=== PATIENT | male | born 1930 | race Hispanic/Latino ===

== ENCOUNTER 2018-03-09 14:41 | Observation (INO) | payer MEDICARE ==
--- NOTE | 2018-03-09 15:13 | ED PDOC ---
Arrival/HPI - General Chief Complaint: Chest Pain Time Seen by Provider: 03/09/18 14:47 Historian: Patient - History of Present Illness Narrative History of Present Illness (Text): 03/09/18 15:05 pt p/w + 2 weeks onset of epigastric/substernal chest pressure/pain; pt states + exertional sob, + worsening pain with exertion; pt states no fever/chills/ sweats, no palpitations, no abd pain, no n/v, no numbness/tingling, no urinary/ bowel changes, no fall/trauma/sick contact, no travel; pt denied gross bleeding. pt [place] walks around the local park daily but over the last 1-2 weeks, has not been able to complete one pass of the park without having worsening epigastric pain with increasing sob pt is here for further eval pt's without other complaints. pt was evaluated at [facility] satellite facility today, prior to ED arrival, and was dx with CHEST PAIN R/O ACS with ? left lung infiltrate, pt was transferred to [place] ED for further eval/mgt/admission (to Dr Robertson) PCP: Dr Robertson pt lives alone Time/Duration: > week (2 weeks) Symptom Onset: Gradual Symptom Course: Other (waxing and waning) Quality: Pressure, Tightness Severity Level: Severe Activities at Onset: Other (worse with exertion) Context: Home Past Medical History - Provider Review Nursing Documentation Reviewed: Yes - Travel History Have you recently traveled outside [place] w/in the past 3 mons?: No - Past History Past History: No Previous - Infectious Disease Hx of Infectious Diseases: None - Tetanus Immunization Tetanus Immunization: Unknown - Cardiac Hx Pacemaker: Yes (DUAL CHAMBERED) - Pulmonary Hx Respiratory Disorders: No - Neurological Hx Paralysis: No - HEENT Hx HEENT Disorder: Yes (eyeglasses) - Renal Hx Renal Disorder: No - Endocrine/Metabolic Hx Endocrine Disorders: No Hx Hypothyroidism: Yes - Hematological/Oncological Hx Blood Transfusions: Yes Hx Blood Transfusion Reaction: No - Integumentary Hx Dermatological Disorder: Yes 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) - Musculoskeletal/Rheumatological Hx Musculoskeletal Disorders: No - Gastrointestinal Hx Gastrointestinal Disorders: Yes (COLITIS 09-28-14) Hx Gastroesophageal Reflux: Yes Other/Comment: colon ca with surgery - Genitourinary/Gynecological Hx Genitourinary Disorders: No Hx Prostate Problems: No (pt/family deny) - Psychiatric Hx Emotional Abuse: No Hx Physical Abuse: No Hx Substance Use: No - Surgical History Hx Cardiac Catheterization: Yes Hx Coronary Stent: Yes (X2) Other/Comment: PARTIAL AMPUTATION OF LEFT RING FINGER 1972, r hemecolectomy tumor removed 10/2014 no chemo, colon polyps - Anesthesia Hx Anesthesia Reactions: Yes Hx Malignant Hyperthermia: No - Suicidal Assessment Feels Threatened In Home Enviroment: No Family/Social History - Physician Review Nursing Documentation Reviewed: Yes Family/Social History: No Known Family HX Smoking Status: Former Smoker Hx Alcohol Use: No Hx Substance Use: No Hx Substance Use Treatment: No Allergies/Home Meds Allergies/Adverse Reactions: Allergies No Known Allergies Allergy (Verified 04/11/15 14:12) Home Medications: Home Meds Medication Instructions Recorded Confirmed Furosemide [Lasix] 20 mg PO DAILY 04/11/15 05/11/15 Magnesium Oxide 250 mg PO DAILY 04/11/15 05/12/15 Memantine HCl [Namenda] 5 mg PO AMHS 04/11/15 05/12/15 Polyethylene Glycol 3350 [Miralax] 17 gm PO DAILY 04/11/15 05/12/15 Vitamin B Complex [Super B100] 1 cap PO DAILY 04/11/15 05/12/15 Dexlansoprazole [Dexilant] 60 mg PO QAM 05/11/15 05/12/15 Levothyroxine Sodium [Unithroid] 0.1 mg PO QAM 05/11/15 05/12/15 Metoprolol Tartrate [Lopressor] 25 mg PO QPM 05/11/15 05/12/15 Review of Systems - Review of Systems Constitutional: Fatigue Eyes: Normal ENT: Normal Respiratory: SOB Cardiovascular: Chest Pain, BARRON. absent: Syncope Gastrointestinal: Normal. absent: Abdominal Pain, Nausea, Vomiting Genitourinary Male: Normal Musculoskeletal: Normal. absent: Arthralgias Skin: Normal Neurological: Dizziness. absent: Headache Endocrine: Normal Hemo/Lymphatic: Normal Psychiatric: Normal Physical Exam Vital Signs Reviewed: Yes Vital Signs Temp Pulse Resp BP Pulse Ox 03/09/18 19:28 59 L 98/56 L 03/09/18 17:17 97.9 F 68 18 95/58 L 03/09/18 14:52 97.9 F 68 18 95/58 L 96 Temperature: Afebrile Blood Pressure: Hypotensive Pulse: Regular Respiratory Rate: Normal Appearance: Positive for: Well-Appearing, Non-Toxic, Uncomfortable, Other (alert /awake, GCS = 15, oriented x 2 (not to date/time), resting in bed, NAD, mildly uncomfortable) Pain Distress: None Mental Status: Positive for: other (alert/awake, oriented x 2 (not to date/time) ) - Systems Exam Head: Present: Atraumatic, Normocephalic Pupils: Present: PERRL, Other (no nystagmus, no photophobia, sclera anicteric) Extroacular Muscles: Present: EOMI Conjunctiva: Present: Normal Ears: Present: Normal Mouth: Present: Other (fair dentitions, mild dry oral mucosa, no dysphonia, uvula/tongue are midline, no exudate/lesions) Pharnyx: Present: Normal Nose (External): Present: Atraumatic Nose (Internal): Present: Normal Inspection Neck: Present: Normal Range of Motion, Trachea Midline, Other (intact ROM, no midline tenderness, no nuchal rigidity, no step off). No: Meningeal Signs, MIDLINE TENDERNESS Respiratory/Chest: Present: Clear to Auscultation, Good Air Exchange, Other ( CTA b/l, no w/r/r, no accessory muscle use noted). No: Respiratory Distress, Accessory Muscle Use Cardiovascular: Present: Regular Rate and Rhythm, Normal S1, S2. No: Murmurs Abdomen: Present: Normal Bowel Sounds, Other (well nourished/obese male, no focal tenderness; no masses/rebound/guarding/rigidity, no burch's sign, no mcburney's point tenderness) Back: Present: Normal Inspection. No: CVA Tenderness, Midline Tenderness Upper Extremity: Present: Normal Inspection, Normal ROM, NORMAL PULSES, Capillary Refill < 2s Lower Extremity: Present: Normal Inspection, NORMAL PULSES, Normal ROM, Neurovascularly Intact Neurological: Present: GCS=15, CN II-XII Intact, Speech Normal Skin: Present: Warm, Normal Color, Other (cap refill < 1sec, no ulcerations, no petechiae) Psychiatric: Present: Alert, Normal Insight, Normal Concentration Medical Decision Making ED Course and Treatment: 03/09/18 15:25 Impression: epigastric pain/exertional sob i have consider all the differential diagnosis regarding pt's chief medical complaints/clinical findings, including but are not limited to: epigastric pain/ exertional sob A/P: epigastric pain/exertional sob; r/o acs, ? PNA - labs - iv - acs eval - xray - supportive care - observe/reevaluation 03/09/18 15:35 pt is currently chest pain free pt states epigastric/chest pain is gone pt is currently NOT sob pt/son are made aware of his medical results agrees with admission pt had been provided 1 dose of ABX and 1 dose ASA at [facility] [address] Robertson, made aware, agrees with admission, will continue to monitor patient; would like to consult Dr Colon (cards) Re-evaluation Time: 15:47 Reassessment Condition: Improved - Critical Care Critical Care Minutes: 30 minutes Critical Care Time: Excluding Proc Time Narrative Critical Care (Text): 03/09/18 15:47 critical care time: 30min, excluding procedure time, excluding time teaching residents/students/mid-level providers; including initial eval/diagnosis, diagnostic interpretation, re-eval, consultations, final disposition - Lab Interpretations I have reviewed the lab results: Yes Interpretation: Abnormal lab values (elevated BNP) - RAD Interpretation Narrative RAD Interpretations (Text): 03/09/18 17:16 Chest X-ray reviewed, shows: LUNGS: No active pulmonary disease. PLEURA: No significant pleural effusion identified. No pneumothorax apparent. CARDIOVASCULAR: Normal. OSSEOUS STRUCTURES: No significant abnormalities. VISUALIZED UPPER ABDOMEN: Normal. OTHER FINDINGS: Dual lead pacemaker IMPRESSION: No active disease 03/09/18 19:50 CT Chest reviewed, shows: Lungs: Notable mosaic attenuation of lung whittington bilaterally. The right lung base. Pleural space: No pneumothorax. No significant effusion. Heart: Streak artifact from dual-lead pacer. Significant coronary artery calcification. Mild cardiomegaly. No significant pericardial effusion. Bones/joints: Degenerative changes. Mildly heterogeneous appearance to vertebral bodies, may be related to osteoporosis. Soft tissues: No acute abnormality as visualized. Vasculature: Pulmonary arteries are prominent, question pulmonary hypertension. Atherosclerosis. No thoracic aortic aneurysm. Limited evaluation without contrast. Lymph nodes: Shotty nodes. Upper abdomen: Minimal hiatal hernia. Bilateral nonspecific perinephric stranding. IMPRESSION: Notable mosaic attenuation of lung whittington bilaterally. Pulmonary arteries are prominent, question pulmonary hypertension as a cause versus other vascular abnormality. Alternatively, may represent parenchymal disease. Correlate clinically to exclude infection. Cannot evaluate for pulmonary embolism without contrast. 03/09/18 20:21 Radiology Orders: 03/09/18 15:38 CHEST TWO VIEWS (PA/LAT) [RAD] Stat Signals Intelligence Superintendent: ED Physician, Radiologist - EKG Interpretation EKG Interpretation (Text): 03/09/18 15:50 Paced rhythm at 60 bpm, no ectopy; ABNL EKG; no gross changes compare with old ekg 04/2015 Interpreted by ED Physician: Yes Type: 12 lead EKG Comparison: Similar to previous EKG - Medication Orders Current Medication Orders: Albuterol/Ipratropium (Duoneb 3 Mg/0.5 Mg (3 Ml) Ud) 3 ml IH QID [facility] Stop: 03/10/18 10:01 Last Admin: 03/09/18 19:27 Dose: 3 ml Atorvastatin Calcium (Lipitor) 10 mg PO DAILY [facility] Ceftriaxone Sodium (Rocephin 1 Gram Ivpb) 1 gm in 100 mls @ 100 mls/hr IVPB DAILY [facility] PRN Reason: Protocol Isosorbide Mononitrate (Imdur Er) 30 mg PO DAILY [facility] Levothyroxine Sodium (Synthroid) 100 mcg PO ACB [facility] Magnesium Oxide (Mag-Ox) 400 mg PO DAILY [facility] Memantine (Namenda) 5 mg PO AMHS [facility] Metoprolol Tartrate (Lopressor) 25 mg PO QPM [facility] Last Admin: 03/09/18 19:28 Dose: Not Given Non-Admin Reason: BP Parameters Not Met MAR Pulse and Blood Pressure Document 03/09/18 19:28 EQ (Rec: 03/09/18 19:30 EQ [id number]) Pulse Pulse Rate (60-90) 59 Blood Pressure Blood Pressure (100/60-150/90) 98/56 Non-Formulary Medication (Vitamin B Complex [Super B100]) 1 cap PO DAILY [facility] Pantoprazole Sodium (Protonix Ec Tab) 40 mg PO ACB [facility] Discontinued Medications Sodium Chloride (Sodium Chloride 0.9%) 500 mls @ 999 mls/hr IV .Q31M [facility] Stop: 03/09/18 16:14 Last Admin: 03/09/18 17:14 Dose: 999 mls/hr eMAR Start Stop Document 03/09/18 17:14 EQ (Rec: 03/09/18 17:14 EQ [id number]) Intravenous Solution Start Date 03/09/18 Start Time 17:14 Nitroglycerin (Nitro-Bid 2% Oint) 1 ea TOP STAT [facility] Stop: 03/09/18 15:39 Last Admin: 03/09/18 17:14 Dose: Not Given Non-Admin Reason: BP Parameters Not Met - Scribe Statement The provider has reviewed the documentation as recorded by the Scribveronica Rizo All medical record entries made by the Scribe were at my direction and personally dictated by me. I have reviewed the chart and agree that the record accurately reflects my personal performance of the history, physical exam, medical decision making, and the department course for this patient. I have also personally directed, reviewed, and agree with the discharge instructions and disposition. Disposition/Present on Arrival - Present on Arrival Any Indicators Present on Arrival: No History of DVT/PE: No History of Uncontrolled Diabetes: No Urinary Catheter: No History of Decub. Ulcer: No History Surgical Site Infection Following: None - Disposition Have Diagnosis and Disposition been Completed?: Yes Diagnosis: Chest pain with moderate risk for cardiac etiology, Weakness, BARRON (dyspnea on exertion) Disposition: HOSPITALIZED Disposition Time: 15:51 Patient Plan: Admission, Telemetry Patient Problems: Current Active Problems Problem Status Onset Pneumonia Acute Chest pain with moderate risk for cardiac etiology Acute Weakness Acute BARRON (dyspnea on exertion) Acute Condition: FAIR
[2018-03-09] MEDS ORDERED: Nitroglycerin 2% Ointment Foilpak UD TOP STA (15:38)
[2018-03-09] MEDS ORDERED: Sodium Chloride 0.9% 500 ML IV STA (15:44)
[2018-03-09 16:52] LABS: ALB/GLOB RATIO 1.2 (1.1-1.8); ALBUMIN 3.5 g/dL (3.0-4.8); ALT/SGPT 31 U/L (7-56); AST/SGOT 29 U/L (17-59); BLOOD UREA NITROGEN 20 mg/dL (7-21); CALCIUM 8.5 mg/dL (8.4-10.5); GFR AFRICAN-AMERICAN > 60; GFR NON-AFRICAN AMERICAN 52
[2018-03-09 17:03] LABS: VENOUS BLOOD GAS BASE EXCESS 1.9 mmol/L (0.0-2.0); VENOUS BLOOD GAS PO2 43 mm/Hg (30-55); VENOUS BLOOD PH 7.36 (7.32-7.43)
[2018-03-09 17:04] LABS: B-TYPE NATRIURETIC PEPTIDE 2170 pg/mL (0-450); TROPONIN I < 0.01 ng/mL
--- NOTE | 2018-03-09 17:14 | RAD ---
HISTORY: chest pain; sob COMPARISON: 04/11/2015 TECHNIQUE: Chest PA and lateral FINDINGS: LUNGS: No active pulmonary disease. PLEURA: No significant pleural effusion identified. No pneumothorax apparent. CARDIOVASCULAR: Normal. OSSEOUS STRUCTURES: No significant abnormalities. VISUALIZED UPPER ABDOMEN: Normal. OTHER FINDINGS: Dual lead pacemaker IMPRESSION: No active disease.
[2018-03-09 17:15] LABS: BASO # 0.02 K/mm3 (0.0-2.0); BASO % 0.4 % (0.0-3.0); EOS # 0.1 (0.0-0.7); EOS % 1.8 % (1.5-5.0); GRAN # 2.9 (1.4-6.5); GRAN % 53.6 % (50.0-68.0); HEMOGLOBIN 11.3 g/dL (14.0-18.0); LYMPH % 36.5 % (22.0-35.0); MEAN CELL VOLUME 103.4 fl (80.0-105.0); MEAN CORPUSCULAR HEMOGLOBIN 34.8 pg (25.0-35.0); MEAN CORPUSCULAR HGB CONC 33.6 g/dl (31.0-37.0); MEAN PLATELET VOLUME 10.3 fl (7.0-11.0); MONO # 0.4 (0.1-0.6); MONO % 7.7 % (1.0-6.0); RBC 3.25 10^6/uL (3.5-6.1); RED CELL DISTRIBUTION WIDTH 13.9 % (11.5-14.5); WHITE BLOOD COUNT 5.4 10^3/ul (4.5-11.0)
[2018-03-09 17:17] LABS: INR 1.09 (0.93-1.08); PARTIAL THROMBOPLASTIN TIME 27.8 Seconds (25.1-36.5); PROTHROMBIN TIME 12.5 SECONDS (9.4-12.5)
[2018-03-09 17:21] VITALS: BMI 30.1
[2018-03-09] MEDS: Albuterol-Ipratrop 3 mg / 0.5 (3 ml) UD IH SCH ×2 (19:27→21:55)
--- NOTE | 2018-03-09 19:47 | CT ---
EXAM: CT Chest Without Intravenous Contrast CLINICAL HISTORY: 87 years old, male; Signs and symptoms; Shortness of breath; Additional info: SOB TECHNIQUE: Axial computed tomography images of the chest without intravenous contrast. All CT scans at this facility use one or more dose reduction techniques, viz.: automated exposure control; ma/kV adjustment per patient size (including targeted exams where dose is matched to indication; i.e. head); or iterative reconstruction technique. Coronal and sagittal reformatted images were created and reviewed. COMPARISON: DX - CHEST TWO VIEWS (PA/LAT) 2018-03-09 17:05 FINDINGS: Lungs: Notable mosaic attenuation of lung whittington bilaterally. The right lung base. Pleural space: No pneumothorax. No significant effusion. Heart: Streak artifact from dual-lead pacer. Significant coronary artery calcification. Mild cardiomegaly. No significant pericardial effusion. Bones/joints: Degenerative changes. Mildly heterogeneous appearance to vertebral bodies, may be related to osteoporosis. Soft tissues: No acute abnormality as visualized. Vasculature: Pulmonary arteries are prominent, question pulmonary hypertension. Atherosclerosis. No thoracic aortic aneurysm. Limited evaluation without contrast. Lymph nodes: Shotty nodes. Upper abdomen: Minimal hiatal hernia. Bilateral nonspecific perinephric stranding. IMPRESSION: Notable mosaic attenuation of lung whittington bilaterally. Pulmonary arteries are prominent, question pulmonary hypertension as a cause versus other vascular abnormality. Alternatively, may represent parenchymal disease. Correlate clinically to exclude infection. Cannot evaluate for pulmonary embolism without contrast. Please see additional details/findings as above. Similarly above findings may warrant followup evaluation.
[2018-03-10] MEDS: Pantoprazole 40 mg EC Tab PO SCH (06:39)
[2018-03-10] MEDS: Levothyroxine 100 MCG TAB PO SCH (06:39)
[2018-03-10] MEDS ORDERED: LEVOTHYROXINE SODIUM PO SCH (10:00)
[2018-03-10] MEDS: Magnesium Oxide 400 mg Tab UD PO SCH (10:58)
[2018-03-10] MEDS: cefTRIAXone 1 gm 1 GM/100 ML BAG IVPB SCH (10:59)
[2018-03-10] MEDS: Multivitamin Therapeutic Tab PO SCH (10:59)
[2018-03-10] MEDS: Albuterol-Ipratrop 3 mg / 0.5 (3 ml) UD IH SCH (11:31)
--- NOTE | 2018-03-10 14:09 | CARD ---
APPROVED REPORT EKG Measurement Heart [id number] <Conclusion> Poor data quality, interpretation may be adversely affected Electronic ventricular pacemaker
--- NOTE | 2018-03-10 17:47 | HP ---
HISTORY OF PRESENT ILLNESS: An 87-year-old white male with history of CAD, history of pacemaker insertion, history of stent with Dr. Colon in the past. The patient also has history of colon cancer, remote, status post resection without recurrence, history of hiatal hernia, approximately 2-week history of increased progressive shortness of breath, dyspnea on exertion and "indigestion" relieved by belching. The [facility] [place], transferred to [facility] for admission. The patient was found to have elevated BNP of 2000. EKG showed no changes. He has pacemaker rhythm. PHYSICAL EXAMINATION VITAL SIGNS: Stable. Temperature is 98.5, blood pressure 130/73. GENERAL: The patient was a well-developed, well-nourished white male, in no apparent distress. HEENT: Essentially normal. HEART: Regular sinus rhythm. No murmurs. CHEST: Clear to auscultation and percussion. ABDOMEN: Benign. There is no tenderness. Bowel sounds are normoactive. There is no splenomegaly. EXTREMITIES: No cyanosis, clubbing or edema. There were some bibasilar changes on CT. CAT scan done showed mosaic pattern of both lung bases without definite infiltrate. Troponins initially were negative. Laboratory data were unremarkable. PLAN: Consult with Dr. Colon treatment of heart failure, possible GI evaluation and after his clearance is possible, to possible acute coronary artery disease. Clear and treat with PPIs. Continue his cardiac medications and cardiac evaluation and possible GI evaluation once he is cleared from Cardiology. Giuseppe Robertson MD cc: MD Angie (Delete if not dictated.)
--- NOTE | 2018-03-10 20:27 | CON ---
DATE: 03/10/2018 INDICATIONS: Chest pain. HISTORY OF PRESENT ILLNESS: This is an 87-year-old man known to our practice with mid epigastric chest discomfort and dyspnea on exertion, this has been present for several days. He has noticed diminished ability to walk because of dyspnea. He was initially seen in the [facility] ER. There was a question of a left lung infiltrate. He was admitted by our emergency room yesterday. Today, he is resting comfortably in bed. He does not have chest pain or shortness of breath. There was no orthopnea, PND or syncope. There was no palpitations, edema or claudication. There was no fever, chills, cough, sputum production, or hemoptysis. There was no nausea, vomiting, diarrhea, constipation, or melena. PAST MEDICAL HISTORY: Notable for coronary artery disease with myocardial infarction, coronary intervention. He has known [id number] LV dysfunction based on an echocardiogram in 2014, which showed segmental wall motion abnormality as well as moderate aortic stenosis, mild mitral regurgitation and mild tricuspid regurgitation. There is a history of hypertension, a permeant pacemaker, colon carcinoma, skin cancer, TURP. There is no history of congestive heart failure, stroke, TIA, diabetes or gout. MEDICATIONS: At the time of admission included Dexilant, Imdur, Lasix, Lipitor, Lopressor, magnesium, MiraLax, Namenda, vitamins, Synthroid. ALLERGIES: THERE WERE NO KNOWN MEDICATION ALLERGIES REPORTED. PHYSICAL EXAMINATION: GENERAL: He is an elderly male, lying in bed on telemetry, in no acute distress. VITAL SIGNS: Telemetry revels ventricular pacing at 60 beats per minute. He is afebrile. Blood pressure 130/73, respirations 18 to 20, O2 sat 96% to 98% on nasal cannula. HEENT: Reveals no neck vein distention, thyromegaly, or carotid bruits. Mucous membranes are moist. Conjunctivae are pink. NECK: Supple. LUNGS: Lung whittington are clear. HEART: Reveals normal first and second heart sounds. There is a systolic ejection murmur in the aortic space and along the left sternal border. ABDOMEN: Soft, bowel sounds present. No mass, organomegaly, tenderness, rebound, or guarding. No CVA tenderness. No palpable abdominal aortic aneurysm. EXTREMITIES: Reveal no cyanosis, clubbing, or edema. NEUROLOGIC: He is awake, alert, and oriented. SKIN: Warm and dry. No rash or cellulitis. PSYCHIATRIC: Normal as to mood and affect. LABORATORY AND IMAGING: The chest x-ray here revealed no active disease. CT scan of the chest is noted, see full report for details. Prominent pulmonary arteries and mosaic attenuation of lung whittington bilaterally are noted. White count normal, platelet count normal, hemoglobin 11.3, hematocrit 33.6. PT 12.5, INR 1.09, PTT normal. Blood gases noted. Electrolytes, BUN, creatinine, blood sugar, all unremarkable. Magnesium 2.2. LFTs are unremarkable. CK 127. Two troponins are negative. BNP 2170. TSH 2.37. IMPRESSION: Wilfrid Bingham is an 87-year-old man admitted with exertional chest pain and dyspnea with known coronary artery disease; remote myocardial infarction; aortic stenosis, which is at least moderate on a prior echocardiogram. 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 I have ordered an echocardiogram to reassess his aortic valve. It is possible that aortic stenosis has progressed to a severe state or that his underlying coronary artery disease has worsened. In the mean time, he is getting isosorbide, Lipitor, metoprolol, magnesium, Namenda, Protonix, and Synthroid. He can be out of bed to chair. I will follow along with you. I will make additional recommendations based on his clinical course. Angelito Mckenna MD MTDD
[2018-03-11 01:14] VITALS: O2SAT 97
[2018-03-11 06:49] VITALS: BP 146/86; PULSE 66; RESP 20; TEMP 98.5
--- NOTE | 2018-03-11 08:11 | CP.PCM.PN ---
Subjective - Date & Time of Evaluation Date of Evaluation: 03/11/18 Time of Evaluation: 07:00 - Subjective Subjective: Stable on 2R. No CP or SOB reported. V/S noted. V. Paced. PE: Lungs: clear Cor.: S1S2, REYNALDO Abd.: soft Ext.: no edema Neuro.: alert BC X2 NG at 24 hrs. Objective - Vital Signs/Intake and Output Vital Signs (last 24 hours): Temp Pulse Resp BP Pulse Ox 98.5 F 66 20 146/86 97 03/11/18 06:00 03/11/18 06:00 03/11/18 06:00 03/11/18 06:00 03/11/18 06:00 Intake and Output: 03/11/18 03/11/18 06:59 18:59 Intake Total 600 Output Total 2 Balance 598 - Medications Medications: Current Medications Atorvastatin Calcium (Lipitor) 10 mg PO DAILY [facility] Last Admin: 03/10/18 10:58 Dose: 10 mg Ceftriaxone Sodium (Rocephin 1 Gram Ivpb) 1 gm in 100 mls @ 100 mls/hr IVPB DAILY [facility] PRN Reason: Protocol Last Admin: 03/10/18 10:59 Dose: 100 mls/hr Isosorbide Mononitrate (Imdur Er) 30 mg PO DAILY [facility] Last Admin: 03/10/18 10:58 Dose: 30 mg Levothyroxine Sodium (Synthroid) 100 mcg PO ACB [facility] Last Admin: 03/10/18 06:39 Dose: 100 mcg Magnesium Oxide (Mag-Ox) 400 mg PO DAILY [facility] Last Admin: 03/10/18 10:58 Dose: 400 mg Memantine (Namenda) 5 mg PO AMHS [facility] Last Admin: 03/10/18 21:35 Dose: 5 mg Metoprolol Tartrate (Lopressor) 25 mg PO QPM [facility] Last Admin: 03/10/18 18:08 Dose: 25 mg Multivitamins (Thera Tab) 1 tab PO DAILY [facility] Last Admin: 03/10/18 10:59 Dose: 1 tab Pantoprazole Sodium (Protonix Ec Tab) 40 mg PO ACB [facility] Last Admin: 03/10/18 06:39 Dose: 40 mg - Labs Labs: 03/09/18 16:30 03/09/18 16:30 PT 12.5 SECONDS (9.4-12.5) 03/09/18 16:30 INR 1.09 (0.93-1.08) H 03/09/18 16:30 APTT 27.8 Seconds (25.1-36.5) 03/09/18 16:30 Assessment and Plan - Assessment and Plan (Free Text) Assessment: CP/SOB Valvular Heat Disease with mod/sev , Mild MR and TR on prior echo CAD/CA/PCI/mod. to severe LVD on prior echo PPM HBP Colon cancer s/p resection HH Skin cancer TURP Plan: Check echo results OOB as brielle. Will follow.
[2018-03-11] MEDS: Multivitamin Therapeutic Tab PO SCH (09:23)
[2018-03-11] MEDS: Magnesium Oxide 400 mg Tab UD PO SCH (09:23)
[2018-03-11] MEDS: Levothyroxine 100 MCG TAB PO SCH (09:23)
[2018-03-11] MEDS: cefTRIAXone 1 gm 1 GM/100 ML BAG IVPB SCH (09:24)
[2018-03-11] MEDS: Pantoprazole 40 mg EC Tab PO SCH (09:24)
--- NOTE | 2018-03-11 09:40 | PN ---
DATE: 03/11/2018 SUBJECTIVE: An 87-year-old white male, history of CAD, valvular heart disease. The patient was admitted with nonspecific chest pain, upper abdominal pain. The patient was seen in consultation with Dr. Mckenna. He is having an echo done today. His troponins are negative. Most likely, we will discharge him home in improved condition. Do an outpatient stress test if possible and also will be treated for gastritis. The patient's laboratory data was unremarkable. The patient has remote history of CA of the bowel. CA is normal. The patient will be discharged home in improved condition and follow as an outpatient. Giuseppe Robertson MD
--- NOTE | 2018-03-12 07:48 | CARD ---
APPROVED REPORT EXAM: Two-dimensional and M-mode echocardiogram with Doppler and color Doppler. 2D DIMENSIONS Left Atrium (2D)3.9 (1.6-4.0cm)IVSd1.2 (0.7-1.1cm) LVDd4.6 (3.9-5.9cm)LVOT Diameter2.0 (1.8-2.4cm) PWd1.1 (0.7-1.1cm)LVDs4.1 (2.5-4.0cm) FS (%) 9.4 %LVEF (%)20.9 (>50%) M-Mode DIMENSIONS Aortic Root2.90 (2.2-3.7cm)Aortic Cusp Exc.0.60 (1.5-2.0cm) Aortic Valve AoV Peak Uhiniuiw224.0cm/sAoV VTI56.1cmAO Peak GR.27mmHg LVOT Peak Lvbleyvt52.6cm/sLVOT VTI18.40cmAO Mean GR.14mmHg GAYLE (VMAX)0.95lx4RKI (VTI)1.03cm2 Mitral Valve E/A ratio0.0 TDI E/Lateral E'0.0E/Medial E'0.0 Tricuspid Valve TR Peak Ntpugddw000cn/sRAP [id number] Peak Gr.22mmHg [id number] LEFT VENTRICLE The left ventricle is normal size. There is mild concentric left ventricular hypertrophy. The systolic function is moderately impaired. There is akinesis in the apical inferior wall. RIGHT VENTRICLE The right ventricle is normal size. The right ventricular systolic function is normal. ATRIA The left atrium is mildly dilated. The right atrium is mildly dilated. The interatrial septum is intact with no evidence for an atrial septal defect. AORTIC VALVE The aortic valve is moderately to severely calcified. There is trace aortic regurgitation. There is moderate valvular aortic stenosis. MITRAL VALVE The mitral valve is mildly thickened. Mitral regurgitation is mild. TRICUSPID VALVE The tricuspid valve is normal in structure. There is mild tricuspid regurgitation. PULMONIC VALVE The pulmonary valve is normal in structure. GREAT VESSELS The aortic root is normal in size. The IVC is normal in size and collapses >50% with inspiration. PERICARDIAL EFFUSION There is no pleural effusion. There is no pericardial effusion. <Conclusion> Dilated LA. Normal LV size. Mild concentric LVH. Moderately reduced LV systolic function with inferoseptal and apical akinesis. Mild MR. Moderate . Midl TR.
[2018-03-12] MEDS ORDERED: Cefpodoxime (Vantin) 200 mg Tab PO SCH (10:00)
== END 2018-03-11 11:32 | disposition home or self-care (01) ==
LOC: ED 14:41 → ERH 15:44 → INTOOBSV 15:44 → ERH 18:46 → 2RSO 20:30
PROVIDERS: ADMIT Internal Medicine; ATTEND Internal Medicine
DX: I25.10 Atherosclerotic heart disease of native coronary artery without angina pectoris (principal); Z85.828 Personal history of other malignant neoplasm of skin; E03.9 Hypothyroidism, unspecified; I08.3 Combined rheumatic disorders of mitral, aortic and tricuspid valves; I10 Essential (primary) hypertension; I25.2 Old myocardial infarction; K21.9 Gastro-esophageal reflux disease without esophagitis; K29.70 Gastritis, unspecified, without bleeding; Z85.038 Personal history of other malignant neoplasm of large intestine; Z95.0 Presence of cardiac pacemaker; Z95.5 Presence of coronary angioplasty implant and graft; Z90.49 Acquired absence of other specified parts of digestive tract
CPT/HCPCS: 36415; 71046; 71250; 80053; 82378; 82550; 82803; 83615; 83735; 83880; 84443; 84484; 85025; 85610; 85730; 87040; 93005; 93306; 94640; 94760; 99285; G0378; J0696; J7040